=== PATIENT | female | born 1975 | race Caucasian/White ===

== ENCOUNTER 2021-01-28 07:21 | Emergency (ER) | payer OTHER ==
[~2021-01-28] VITALS: Ht 165.1 cm; Wt 53.5 kg
--- NOTE | 2021-01-28 07:47 | PHYS DOC ---
Adult General HPI HPI Patient is a 45-year-old female presenting for abdominal pain. Onset was approximately 2-1/2 hours prior to arrival without any known inciting event, trauma ingestion or exposure. Reports pain on initial onset was 5/10 severity, sharp, nonradiating and focal to right lower quadrant. Nothing known made better or worse. Timing of symptoms have waxed and waned since onset, reports it initially improved but came back later with increased intensity causing her to be nauseous and experienced x1 episode of nonbloody nonbilious emesis. Reports since transport to ER for evaluation, her pain has improved and is currently 3/10 severity. She has no history of abdominal surgeries in the past, does admit having partial hysterectomy with complete removal of uterus due to fibroids and x1 known right ovarian cyst but denies any fever, vaginal discharge or bleeding. Review of Systems Review of Systems Fourteen body systems of review of systems have been reviewed. See HPI for pertinent positives and negative responses, other randall all other systems are negative, non-pertinent or non-contributory Physical Exam Physical Exam Constitutional: Well developed, well nourished, in moderate distress due to pain but is nontoxic in appearance HENT: Normocephalic, atraumatic, bilateral external ears normal, oropharynx moist, no oral exudates, nose normal. Eyes: PERRLA, EOMI, conjunctiva normal, no discharge. Neck: Normal range of motion, no tenderness, supple, no stridor. Cardiovascular: Heart rate regular, sinus rhythm, no murmurs rubs or gallops Lungs & Thorax: Bilateral breath sounds clear to auscultation Abdomen: Bowel sounds normal, soft, right lower quadrant pain with palpation, positive McBurney's and positive heel strike, negative Rivera/obturator/rebound signs, no masses, no pulsatile masses. Skin: Warm, dry, no erythema, no rash. Back: No tenderness, no CVA tenderness. Extremities: No tenderness, no cyanosis, no clubbing, ROM intact, no edema. Neurologic: Alert and oriented X 3, grossly normal motor & sensory function, no focal deficits noted. Psychologic: Anxious affect and mood Current Patient Data Vital Signs Vital Signs Date Time Temp Pulse Resp B/P (MAP) Pulse Ox O2 Delivery O2 Flow Rate FiO2 01/28/21 07:34 98.2 95 16 135/90 100 Room Air Vital Signs Date Time Temp Pulse Resp B/P (MAP) Pulse Ox O2 Delivery O2 Flow Rate FiO2 01/28/21 11:00 96 16 112/66 (81) 98 Room Air 01/28/21 07:34 98.2 Lab Results Laboratory Tests Test 01/28/21 07:29 01/28/21 07:46 Urine Collection Type Unknown Urine Color Yellow Urine Clarity Clear Urine pH 5.5 Urine Specific [place] >=1.030 Urine Protein Neg Urine Glucose (UA) Neg mg/dL Urine Ketones (Stick) Neg mg/dL Urine Blood Neg Urine Nitrite Neg Urine Bilirubin Neg Urine Urobilinogen Dipstick 0.2 mg/dL Urine Leukocyte Esterase Neg Urine RBC 1-2 /HPF Urine WBC 1-4 /HPF Urine Squamous Epithelial Cells Mod /LPF Urine Bacteria 0 /HPF Urine Mucus Slight /LPF White Blood Count 8.6 x10^3/uL Red Blood Count 4.99 x10^6/uL Hemoglobin 14.6 g/dL Hematocrit 43.4 % Mean Corpuscular Volume 87 fL Mean Corpuscular Hemoglobin 29 pg Mean Corpuscular Hemoglobin Concent 34 g/dL Red Cell Distribution Width 13.3 % Platelet Count 174 x10^3/uL Neutrophils (%) (Auto) 74 % Lymphocytes (%) (Auto) 19 % Monocytes (%) (Auto) 6 % Eosinophils (%) (Auto) 0 % Basophils (%) (Auto) 1 % Neutrophils # (Auto) 6.3 x10^3uL Lymphocytes # (Auto) 1.7 x10^3/uL Monocytes # (Auto) 0.5 x10^3/uL Eosinophils # (Auto) 0.0 x10^3/uL Basophils # (Auto) 0.0 x10^3/uL Sodium Level 140 mmol/L Potassium Level 3.9 mmol/L Chloride Level 103 mmol/L Carbon Dioxide Level 27 mmol/L Anion Gap 10 Blood Urea Nitrogen 14 mg/dL Creatinine 0.8 mg/dL Estimated GFR (Cockcroft-Gault) 77.6 BUN/Creatinine Ratio 18 Glucose Level 116 mg/dL Calcium Level 8.8 mg/dL Total Bilirubin 0.4 mg/dL Aspartate Amino Transf (AST/SGOT) 16 U/L Alanine Aminotransferase (ALT/SGPT) 21 U/L Alkaline Phosphatase 48 U/L Total Protein 6.7 g/dL Albumin 4.3 g/dL Albumin/Globulin Ratio 1.8 Current Medications Medications (Trade) Dose Ordered Sig/Walter Route PRN Reason Start Time Stop Time Status Last Admin Dose Admin Iohexol (Omnipaque 300 Mg/ml) 75 ml 1X ONCE IV 01/28/21 08:00 01/28/21 08:01 DC 01/28/21 08:39 Info (Do NOT chart on this entry -- for MONITORING) 1 each PRN DAILY PRN MC SEE COMMENTS 01/28/21 08:00 01/28/21 11:39 DC Sodium Chloride 1,000 ml @ 1,000 mls/hr 1X ONCE IV 01/28/21 08:15 01/28/21 09:14 DC 01/28/21 08:23 Fentanyl Citrate (Fentanyl 2ml Vial) 75 mcg 1X ONCE IVP 01/28/21 08:15 01/28/21 08:18 DC 01/28/21 08:23 Ondansetron HCl (Zofran) 4 mg 1X ONCE IVP 01/28/21 08:15 01/28/21 08:18 DC 01/28/21 08:22 EKG EKG [] Radiology/Procedures Radiology/Procedures Exam Date: 01/28/2021 8:[address] ABDOMEN+PELVIS W Indication: Reason: RLQ PAIN / Spl. Instructions: / History: . TECHNIQUE: CT examination of the abdomen and pelvis was performed following the administration of oral and nonionic intravenous contrast. One or more of the following dose reduction techniques were utilized: *Automated exposure control (AEC) *Adjustment of mA and/or kV according to patient size *Use of iterative reconstruction technique *CT scan done according to ALARA, or ALARA/IMAGE GENTLY FINDINGS: The visualized lung bases are clear. There is a too small to characterize hypodensity in the right kidney. The liver, gallbladder, spleen, pancreas, adrenal glands and kidneys are otherwise normal. Urinary bladder is normal in appearance. There is a 5.6 cm cyst in the right adnexa. There is an additional 2.2 cm adjacent right adnexal cyst. Uterus appears heterogeneous suggesting fibroids. There is no bowel obstruction or inflammation. No evidence for acute appendicitis. An appendicolith is noted. No significant atherosclerotic calcifications are seen. No lymphadenopathy or ascites is seen. Degenerative changes are seen in the spine. IMPRESSION: There are multiple right adnexal cysts, the largest measuring 5.6 cm. Further evaluation with pelvic ultrasound is recommended. Electronically signed by: Antolin Orellana MD (01/28/2021 9:07 AM) [id number] ///////////////////////////////////////// INDICATION: Reason: RT ADNEXAL PAIN / Spl. Instructions: / History: COMPARISON: CT from same day TECHNIQUE: Grayscale and color ultrasound images uterus and adnexa. FINDINGS: Uterus: Removed Right Ovary: 78 x 60 x 57 mm. Left Ovary: 36 x 30 x 23 mm. Vascular flow identified to bilateral ovaries. 52 x 53 x 47 complex cystic lesion of the right ovary with some apparent mural n odularity. Additional 24 mm smaller cyst at the left ovary. IMPRESSION: * Right adnexal cystic lesion with mural nodularity which could be from debris or solid component. Further workup option includes either obtaining a follow-up exam to ensure that this appropriately regresses in size or pelvic MRI with and without contrast could BE obtained to further assess whether there is solid component or a complex component secondary to debris. Electronically signed by: Maynor Frank MD (01/28/2021 10:25 AM) [id number] Heart Score C/O Chest Pain: No Risk Factors: Risk Factors: DM, Current or recent (<one month) smoker, HTN, HLP, family history of CAD, obesity. Risk Scores: Risk Factors: DM, Current or recent (<one month) smoker, HTN, HLP, family history of CAD, obesity. Course & Med Decision Making Course & Med Decision Making ABCs unremarkable. I disclosed entirety of ER findings and discussed most likely diagnosis of right adnexal pain likely due to cyst. I reviewed entirety of ER work-up, I contacted [facility] at [facility] and reviewed case, it was recommended that if pain was uncontrolled to transfer over for further evaluation; otherwise, plan for DC home with continued supportive care and close outpatient follow-up advised. I discussed this discussion with patient and at bedside, patient responded to ER intervention provided and will was pain-free after numerous reassessments. She is requesting discharge home and wanting to trial outpatient follow-up with [employer]. I think this is appropriate. As such, I stressed need for close outpatient follow-up to review today's ER visit. Strict return precautions were also discussed at length with good understanding by patient. Patient voiced understanding and agreement with the plan. Patient knows to come back for repeat evaluation if concerning signs or symptoms present prior to outpatient follow-up. Hemodynamically stable, ambulatory and well-appearing at time of disposition. Dragon Disclaimer Dragon Disclaimer This electronic medical record was generated, in whole or in part, using a voice recognition dictation system. Departure Departure: Impression: Primary Impression: Right adnexal tenderness Disposition: HOME / SELF CARE / HOMELESS Condition: STABLE Referrals: ELSIE ESPINOSA MD (PCP) Additional Instructions: You have been evaluated in the Emergency Department today for abdominal pain. Your evaluation was not suggestive of any emergent condition requiring medical intervention at this time. However, some abdominal problems make take more time to appear. Therefore, it is important for you to watch for any new symptoms or worsening of your current condition. As discussed, I spoke to the [employer] specialist at [facility] and they want to see you in clinic. Please call their office first thing after ER departure to schedule outpatient clinic appointment this upcoming Tuesday for repeat evaluation Dr. García can be contacted at: Address: [address] [place], [place] [address] [address], [place] [address] Return to the Emergency Department if you experience worsening pain, persistent fevers greater than 100.4, recurrent vomiting, blood in vomit, blood in stool, dark tarry stool, chest pain, difficulty breathing, or any other concerning symptoms. Scripts Ibuprofen (Ibu) 800 Mg Tablet 1 TAB PO Q8HRS for PAIN for 7 Days, #21 TAB 0 Refills Prov: TAMMIE REID DO 01/28/21 TAMMIE REID DO Jan 28, 2021 07:47
[2021-01-28] MEDS ORDERED: IOHEXOL 300 MG/ML 75 ML VIAL. IV ONE (08:00)
[2021-01-28] MEDS ORDERED: CONTRAST GIVEN. MC PRN (08:00)
[2021-01-28 08:04] LABS: BASO % 1 % (0-3); EOS % 0 % (0-3); HEMATOCRIT 43.4 % (36.0-47.0); HEMOGLOBIN 14.6 g/dL (12.0-15.5); LYMPH # 1.7 x10^3/uL (1.0-4.8); LYMPH % 19 % (24-48); MEAN CORPUSCULAR HEMOGLOBIN 29 pg (25-35); MEAN CORPUSCULAR HGB CONC 34 g/dL (31-37); MEAN CORPUSCULAR VOLUME 87 fL (79-100); MONO # 0.5 x10^3/uL (0.0-1.1); MONO % 6 % (0-9); NEUT # 6.3 x10^3uL (1.8-7.7); NEUT % 74 % (31-73); PLATELET COUNT 174 x10^3/uL (140-400); RED BLOOD COUNT 4.99 x10^6/uL (3.50-5.40); RED CELL DISTRIBUTION WIDTH 13.3 % (11.5-14.5); WHITE BLOOD COUNT 8.6 x10^3/uL (4.0-11.0)
[2021-01-28] MEDS ORDERED: ONDANSETRON PF 4 MG/2 ML VIAL. IVP ONE (08:15)
[2021-01-28] MEDS ORDERED: IV NORMAL SALINE 1,000ML 1,000 ML IV ONE (08:15)
[2021-01-28 08:17] LABS: CALCIUM 8.8 mg/dL (8.5-10.1); CREATININE 0.8 mg/dL (0.6-1.0); GFR 77.6; POTASSIUM 3.9 mmol/L (3.5-5.1)
[2021-01-28 08:20] LABS: BACTERIA,URINE 0 /HPF (0-FEW); BILIRUBIN,URINE NEG (NEG); CLARITY,URINE CLEAR; COLOR,URINE YELLOW; GLUCOSE,URINE NEG (NEG); NITRITE,URINE NEG (NEG); SQUAMOUS EPITHELIAL CELL,UR MOD /LPF; UROBILINOGEN,URINE 0.2 mg/dL (0.2 mg/dL)
[2021-01-28 08:21] LABS: ALBUMIN 4.3 g/dL (3.4-5.0); ALBUMIN/GLOBULIN RATIO 1.8 (1.0-1.7); TOTAL BILIRUBIN 0.4 mg/dL (0.2-1.0); TOTAL PROTEIN 6.7 g/dL (6.4-8.2)
--- NOTE | 2021-01-28 09:10 | RAD ---
Exam Date: 01/28/2021 8:[address] ABDOMEN+PELVIS W Indication: Reason: RLQ PAIN / Spl. Instructions: / History: . TECHNIQUE: CT examination of the abdomen and pelvis was performed following the administration of or al and nonionic intravenous contrast. One or more of the following dose reduction techniques were ut ilized: *Automated exposure control (AEC) *Adjustment of mA and/or kV according to patient size *Use of iterative reconstruction technique *CT scan done according to ALARA, or ALARA/IMAGE GENTLY FINDINGS: The visualized lung bases are clear. There is a too small to characterize hypodensity in the right kidney. The liver, gallbladder, spleen, pancreas, adrenal glands and kidneys are otherwise normal. Urinary bladder is normal in appearance. There is a 5.6 cm cyst in the right adnexa. There is an ad ditional 2.2 cm adjacent right adnexal cyst. Uterus appears heterogeneous suggesting fibroids. There is no bowel obstruction or inflammation. No evidence for acute appendicitis. An appendicolith is noted. No significant atherosclerotic calcifications are seen. No lymphadenopathy or ascites is seen. Degenerative changes are seen in the spine. IMPRESSION: There are multiple right adnexal cysts, the largest measuring 5.6 cm. Further evaluation with pelvic ultrasound is recommended. Electronically signed by: Antolin Orellana MD (01/28/2021 9:07 AM) [id number]
--- NOTE | 2021-01-28 10:27 | RAD ---
INDICATION: Reason: RT ADNEXAL PAIN / Spl. Instructions: / History: COMPARISON: CT from same day TECHNIQUE: Grayscale and color ultrasound images uterus and adnexa. FINDINGS: Uterus: Removed Right Ovary: 78 x 60 x 57 mm. Left Ovary: 36 x 30 x 23 mm. Vascular flow identified to bilateral ovaries. 52 x 53 x 47 complex cystic lesion of the right ovary with some apparent mural nodularity. Additional 24 mm smaller cyst at the left ovary. IMPRESSION: * Right adnexal cystic lesion with mural nodularity which could be from debris or solid component. Further workup option includes either obtaining a follow-up exam to ensure that this appropriately re gresses in size or pelvic MRI with and without contrast could BE obtained to further assess whether t here is solid component or a complex component secondary to debris. Electronically signed by: Maynor Frank MD (01/28/2021 10:25 AM) [id number]
[2021-01-28 11:00] VITALS: BP 112/66
[2021-01-28] MEDS ORDERED: IBUP-577 PO (11:28)
== END 2021-01-28 11:39 | disposition home or self-care (01) ==
LOC: ER 07:21
DX: R10.2 Pelvic and perineal pain (principal); R10.31 Right lower quadrant pain; R11.2 Nausea with vomiting, unspecified
CPT/HCPCS: 36415; 74177; 76856; 80053; 81001; 85025; 96361; 96374; 96375; 99285; J2405; J3010; J7030; Q9967